=== PATIENT | female | born 1985 | race Caucasian/White ===

== ENCOUNTER → 2022-12-27 11:42 | Outpatient (BNVA) | payer OTHER, SELFPAY | PROVIDERS: PCP Psychiatry & Neurology Psychiatry; Visit Provider Physician Assistant | DX: S70.371A Other superficial bite of right thigh, initial encounter (principal); W50.3XXA Accidental bite by another person, initial encounter; Z23 Encounter for immunization | CPT/HCPCS: 90715; 99203 ==